=== PATIENT | female | born 1975 | race Caucasian/White ===

== ENCOUNTER 2016-07-03 02:10 | Emergency (ER) | payer OTHER ==
[~2016-07-03] VITALS: Ht 157.5 cm; Wt 58.0 kg
[2016-07-03 02:13] VITALS: BP 140/97; PULSE 109; RESP 18; TEMP 98.6; O2SAT 99
[2016-07-03] MEDS ORDERED: HYDROmorphone HCL PF 1 MG/ML VIAL IV PUSH ONE (02:30)
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
[2016-07-03 03:17] VITALS: RESP 16
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
[2016-07-03] MEDS ORDERED: HYDR-3533 PO (03:55)
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
== END 2016-07-03 04:41 | disposition home or self-care (01) ==
LOC: NEPE 02:10
DX: M54.2 Cervicalgia (principal); R20.0 Anesthesia of skin; R03.0 Elevated blood-pressure reading, without diagnosis of hypertension; R55 Syncope and collapse; F17.210 Nicotine dependence, cigarettes, uncomplicated; J45.909 Unspecified asthma, uncomplicated; V49.59XA Passenger injured in collision with other motor vehicles in traffic accident, initial encounter; Y93.89 Activity, other specified; Y92.410 Unspecified street and highway as the place of occurrence of the external cause
CPT/HCPCS: 70450; 71010; 72125; 72128; 73060; 96374; 99284; J1170